=== PATIENT | male | born 2000 | race Two or more races ===

== ENCOUNTER 2023-04-02 20:59 | Inpatient (IN) | payer BC ==
[~2023-04-02] VITALS: Ht 177.8 cm; Wt 59.1 kg
[2023-04-03] MEDS ORDERED: magnesium hydroxide 30ml (MOM) UD suspension PO PRN (09:50)
[2023-04-03] MEDS ORDERED: mag hydrox/Alum hydrox/simeth 30ml oral suspension PO PRN (09:50)
[2023-04-03] MEDS ORDERED: acetaminophen 325mg tablet PO PRN ×2 (09:50)
[2023-04-03] MEDS ORDERED: loperamide 2mg capsule PO PRN (09:50)
[2023-04-03] MEDS ORDERED: NO HOME MEDS (11:07)
--- NOTE | 2023-04-03 11:19 | NUR ---
Admit note: Pt [facility] on a 5150 for gravely disabled from [facility] at 1015. Pt was found by family screaming and then in a catatonic state. Justice presents with acute psychosis and placed on 179. Pt presents pacing, talking with God, and was told that his soul wanted him to commit suicide . Pt has not been sleeping or eating and acting on voices he hears. Pt denies any history.
[2023-04-03 12:35] VITALS: BP 134/81; PULSE 81; RESP 16; TEMP 99.4; O2SAT 97
[2023-04-03 12:36] VITALS: RESP 16; O2SAT 97
[2023-04-03 19:00] VITALS: RESP 16; O2SAT 100
[2023-04-03 19:31] VITALS: BP 125/78; PULSE 72; RESP 16; TEMP 97.7; O2SAT 100
[2023-04-03] MEDS ORDERED: OLANZapine 2.5MG tablet PO SCH (21:00)
[2023-04-03] MEDS: LORazepam 0.5 MG tablet PO PRN (21:54)
--- NOTE | 2023-04-04 01:44 | NUR ---
NURSING PROGRESS NOTE: Problem: Pt admitted to [facility] today on a 5150 for gravely disabled from [facility] at 1015. Pt was found by family screaming and then in a catatonic state. Justice presents with acute psychosis and placed on 1798. Pt presents pacing, talking with God, and was told that his soul wanted him to commit suicide . Pt has not been sleeping or eating and acting on voices he hears. Pt denies any history. Interventions: Maintained a safe and supportive environment, provided clear and simple instructions, attempt to orient to reality, provided active listening and positive encouragement, encouraged participation on the unit, and maintained Q 15min safety checks. Response: Received pt. in room at change of shift. Pt. is quiet and keeps to himself. Pt. reported having anxiety but initially declined any medication. was contacted, and new orders for zyprexa and PRN ativan were prescribed. Pt. was hesitant to taking medications but after some explaining, pt. agreed to take the medication. Pt. kept asking about a nicotine patch; pt. informed nicotine patches are placed in the mornings. Pt. states that he vapes. Pt. denies SI/HI/AH/VH this shift. Pt. paced the unit before going to bed. Observed and appears to be sleeping without difficulty.
--- NOTE | 2023-04-04 03:13 | NUR ---
MACHINE COMPOSITOR documentation: I have reviewed and agree with all interventions, assessments performed and documented by Mik Farnsworth LVN
[2023-04-04 07:00] VITALS: RESP 16; O2SAT 95
[2023-04-04 07:47] LABS: CHOL/HDL RATIO 2.6 (0.00-4.99); CHOLESTEROL 134 MG/DL (0-200); HDL CHOLESTEROL 51 MG/DL (35-60); LDL CHOLESTEROL 70 MG/DL (50-100); TRIGLYCERIDES 46 MG/DL (20-135)
[2023-04-04 08:00] VITALS: BP 115/69; PULSE 70; RESP 16; TEMP 98; O2SAT 95
[2023-04-04 08:20] LABS: HEMOGLOBIN A1C 5.2 % (4.5-6.2)
[2023-04-04] MEDS: nicotine 14mg patch - 24hr TD SCH (08:39)
[2023-04-04] MEDS: NICOTINE POLACRILEX 2 MG LOZENGE BC PRN ×3 (09:15→19:34)
[2023-04-04] MEDS: LORazepam 0.5 MG tablet PO PRN ×3 (11:29→21:05)
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
[2023-04-04 19:00] VITALS: RESP 18; O2SAT 100
[2023-04-04 20:00] VITALS: BP 134/86; PULSE 110; RESP 18; TEMP 98; O2SAT 100
[2023-04-04] MEDS: OLANZAPINE 5 MG TABLET PO SCH (21:05)
--- NOTE | 2023-04-05 00:32 | NUR ---
Nursing Progress Note: Problem : Pt admitted to [facility] today on a 5150 for gravely disabled from [facility] at 1015. Pt was found by family screaming and then in a catatonic state. Justice presents with acute psychosis and placed on 1798. Pt presents pacing, talking with God, and was told that his soul wanted him to commit suicide . Pt has not been sleeping or eating and acting on voices he hears. Pt denies any history. Interventions : Introduced self and established rapport, maintained a safe and supportive environment, ensured contract for safety, provided clear and simple instructions, attempted to orient to reality, monitored behavior and need for intervention, and maintained Q 15min safety checks. Response : Received pt. in his room at change of shift. Pt. isolates to himself. He was observed pacing and talking on the phone this shift. When pacing pt. holds head down and is noted playing with his nose ring. Pt. reports depression on a 6/10 scale. Pt. is medication compliant . He reported feeling anxious; PRN ativan provided to pt. When asked, pt. denies SI/HI/AH/VH. Nicotine patch removed. Plan : Pt. requires interruption of current crisis, medication adjustments, and Q 15min safety checks.
[2023-04-05 07:00] VITALS: RESP 16; O2SAT 99
[2023-04-05 07:45] VITALS: BP 110/73; PULSE 79; RESP 16; TEMP 97.9; O2SAT 99
[2023-04-05] MEDS: nicotine 14mg patch - 24hr TD SCH (08:45)
[2023-04-05] MEDS: NICOTINE POLACRILEX 2 MG LOZENGE BC PRN ×2 (12:03→18:44)
--- NOTE | 2023-04-05 17:39 | NUR ---
Nursing Progress Note: Problem: Pt admitted to [facility] today on a 5150 for gravely disabled from [facility] at 1015. Pt was found by family screaming and then in a catatonic state. Justice presents with acute psychosis and placed on 1798. Pt presents pacing, talking with God, and was told that his soul wanted him to commit suicide. Pt has not been sleeping or eating and acting on voices he hears. Pt denies any history. Interventions : Introduced self and established rapport, maintained a safe and supportive environment, ensured contract for safety, provided clear and simple instructions, attempted to orient to reality, monitored behavior and need for intervention, and maintained Q 15min safety checks. Response: Patient sleeping in bed at change of shift. Patient cooperative with vitals, and then awoke and played a game with two other peers. Patient was discussing that people are after him and he is paranoid because of this. Patient is restless and walks around the unit. When he sees RN coming towards him, he walks the other direction. Went to patient to have 1:1, and patient stated that he does not feel like talking right now. Patient walks around unit with a blank stare. Will continue to monitor. Plan : Pt. requires interruption of current crisis, medication adjustments, and Q 15min safety checks.
[2023-04-05 19:00] VITALS: RESP 14; O2SAT 96
[2023-04-05 19:49] VITALS: BP 117/84; PULSE 96; RESP 14; TEMP 98.1; O2SAT 99
[2023-04-05] MEDS: OLANZAPINE 5 MG TABLET PO SCH (20:17)
[2023-04-05] MEDS: LORazepam 0.5 MG tablet PO PRN (21:48)
--- NOTE | 2023-04-06 03:57 | NUR ---
Nursing Progress Note: Problem: Pt admitted to [facility] today on a 5150 for gravely disabled from [facility] at 1015. Pt was found by family screaming and then in a catatonic state. Justice presents with acute psychosis and placed on 1798. Pt presents pacing, talking with God, and was told that his soul wanted him to commit suicide. Pt has not been sleeping or eating and acting on voices he hears. Pt denies any history. Interventions : Introduced self and established rapport, maintained a safe and supportive environment, ensured contract for safety, provided clear and simple instructions, attempted to orient to reality, monitored behavior and need for intervention, and maintained Q 15min safety checks. Response: upon shift patient was seen wondering hallways. During 1:1, patient seemed pleasant yet short. Patient stated he did not feel like people were after him anymore. He denies suicidal ideations, and bad thoughts but admits he hears the voice of the Holy Spirit saying positive things to him. Patient hopes to go home tomorrow, he also added that this is his first time in a hospital for this reason and also his first time taking medications. When patient was asked if he was in pain, patient says yes, pain of being alone. Patient is supposed to start a new job this week at [employer] Patient says he is sleeping well here, and consuming every meal/snack. Last bowel movement 04/05. Patient currently sitting on bed writing in journal. Later on shift approx. 2216, patient still awake with hard time sleeping so this nurse administrated PRN lorazepam. Patient still awake at 2315. Plan : Pt. requires interruption of current crisis, medication adjustments, and Q 15min safety checks.
[2023-04-06 07:00] VITALS: BP 100/60; PULSE 80; RESP 16; TEMP 98.1; O2SAT 97
[2023-04-06] MEDS: nicotine 14mg patch - 24hr TD SCH (08:28)
[2023-04-06] MEDS: NICOTINE POLACRILEX 2 MG LOZENGE BC PRN (10:03)
[2023-04-06] MEDS ORDERED: OLAN5TAB75 PO (11:21)
[2023-04-06] MEDS ORDERED: NICO-631 TD (11:21)
--- NOTE | 2023-04-06 13:05 | NUR ---
DISCHARGE NOTE: Patient is up in the morning. Patient states that he is not hearing any voices anymore. Parents came to visit patient and they are supportive of him and talk openly about what happened with patient and how he has improved. Patient is discharged with all belongings. RN escorted patient to the lobby where his parents are waiting. Patient denies SI and is discharged in stable condition.
== END 2023-04-06 13:05 | disposition home or self-care (01) | DRG 885 ==
LOC: ADULT MH 04-03 10:13
PROVIDERS: ADMIT Psychiatry & Neurology Psychiatry; ATTEND Psychiatry & Neurology Psychiatry
DX: F25.9 Schizoaffective disorder, unspecified (principal); F22 Delusional disorders; F32.A Depression, unspecified; F41.9 Anxiety disorder, unspecified; Z55.5 Less than a high school diploma; Z81.8 Family history of other mental and behavioral disorders; Z87.891 Personal history of nicotine dependence
CPT/HCPCS: 36415; 80061; 83036; 87081

== ENCOUNTER 2024-05-22 05:59 | Emergency (ER) | payer BC, MEDICAID ==
[~2024-05-22] VITALS: Ht 180.3 cm; Wt 65.0 kg
[~2024-05-22 05:59] MED LIST: NICO-631 TD; OLAN5TAB75 PO
[2024-05-22 08:29] LABS: ALBUMIN 3.8 G/DL (3.4-5.0); ANION GAP 11 (8-16); BLOOD UREA NITROGEN 10 MG/DL (7-18); CALCIUM 8.1 MG/DL (8.5-10.1); CHLORIDE 106 MMOL/L (99-107); CREATININE 0.77 MG/DL (0.60-1.10); ETHANOL 242 MG/DL (<10); GLUCOSE 93 MG/DL (70-104); POTASSIUM 3.6 MMOL/L (3.5-5.1); SODIUM 141 MMOL/L (135-145); TOTAL CARBON DIOXIDE 24.1 MMOL/L (24-32); eCRCL 138 ML/MIN; eGFR > 90 ML/MIN
[2024-05-22 08:49] LABS: URINE AMPHETAMINE SCREEN NEGATIVE (Neg); URINE BARBITUATE SCREEN NEGATIVE (Neg); URINE BENZODIAZEPINES SCREEN NEGATIVE (Neg); URINE CANNABINOID SCREEN NEGATIVE (Neg); URINE COCAINE SCREEN NEGATIVE (Neg); URINE METHADONE SCREEN NEGATIVE (Neg); URINE OPIATE SCREEN NEGATIVE (Neg); URINE PHENCYCLIDINE SCREEN NEGATIVE (Neg)
[2024-05-22 09:03] LABS: BASOPHILS # (AUTO) 0.1 X10'3 (0-0.2); BASOPHILS % (AUTO) 1.6 % (0-1); EOSINOPHILS # (AUTO) 0.1 X10'3 (0-0.9); EOSINOPHILS % (AUTO) 1.8 % (0-6); HEMATOCRIT 46.7 % (42.0-52.0); LYMPHOCYTES # (AUTO) 1.1 X10'3 (1.1-4.8); MEAN CORPUSCULAR HEMOGLOBIN 31.4 PG (27.0-31.0); MEAN CORPUSCULAR HGB CONC 34.1 g/dL (33.0-36.5); MEAN CORPUSCULAR VOLUME 91.9 FL (78-98); MEAN PLATELET VOLUME 6.9 FL (7.4-10.4); MONOCYTES # (AUTO) 0.2 X10'3 (0-0.9); MONOCYTES % (AUTO) 3.9 % (2-12); NEUTROPHILS # (AUTO) 4.1 X10'3 (1.8-7.7); NEUTROPHILS % (AUTO) 73.7 % (42-75); PLATELET COUNT 220 X10'3 (140-440); RED BLOOD COUNT 5.08 X10'6 (4.70-6.10); RED CELL DISTRIBUTION WIDTH 12.9 % (11.5-14.5); WHITE BLOOD COUNT 5.6 X10'3 (4.5-11.0)
[2024-05-22 09:43] VITALS: BP 102/61; PULSE 96; RESP 16; TEMP 98.2; O2SAT 98
== END 2024-05-22 10:47 | disposition home or self-care (01) ==
LOC: ER 05:59
DX: F10.129 Alcohol abuse with intoxication, unspecified (principal); F17.200 Nicotine dependence, unspecified, uncomplicated; F32.A Depression, unspecified; Z79.899 Other long term (current) drug therapy; Z72.89 Other problems related to lifestyle; Y90.8 Blood alcohol level of 240 mg/100 ml or more
CPT/HCPCS: 36415; 80048; 80305; 80320; 85025; 99284; 99291